=== PATIENT | female | born 1980 | race Caucasian/White ===

== ENCOUNTER 2017-01-08 21:23 | Emergency (ER) | payer BC, OTHER ==
--- NOTE | 2017-01-08 23:48 | NUR ---
CALLED FOR PT NO ANSWER LWBT
== END 2017-01-08 23:50 | disposition left against medical advice (07) ==
LOC: ER 21:25
DX: H92.09 Otalgia, unspecified ear (principal); Z53.21 Procedure and treatment not carried out due to patient leaving prior to being seen by health care provider